=== PATIENT | female | born 1965 | race Caucasian/White ===

== ENCOUNTER 2022-08-18 18:00 | Emergency (ER) | payer MEDICAID, SELFPAY ==
--- NOTE | 2022-08-18 18:05 | EXP.UTC ---
Discharge Plan Disposition Patient Disposition: Home, Self-Care Condition: Good Prescriptions Prescriptions: New methylprednisolone 4 mg Tablets,Dose Pack 4 mg PO DIRECTED Qty: 21 0RF Aveeno Moisturizing 1 % cream 1 applic topical QID Qty: 206 0RF Referrals Follow up/Referrals: Renee Read APRN [Primary Care Provider] - See instructions Activity Restrictions/Add. Instructions Additional Instructions/Restrictions: Drink plenty of fluids. Use a good moisturizing lotion without fragrance, I prescribed one. Or, you could pick one over the counter. Take the medications as directed. Follow up with your regular doctor. GO TO THE ER FOR ANY WORSENING SYMPTOMS Clinical Impressions Clinical Impression: Chronic pruritus, Dry skin Instructions Patient Instructions: DI for Itching Discharge ED Provider: Justice Abraham [facility] General Time Seen by Provider: 08/18/22 19:11 History of Present Illness Provider Complaint: She states that she has been having itching of her legs, arms and body for the past several weeks. She has taken hydroxzine, topical steroids and Related Data Previous Rx's Medication Instructions Recorded colloidal oatmeal 1 % topical 1 applic topical QID #206 grams 08/18/22 cream (Aveeno Moisturizing) methylprednisolone 4 mg tablets in 4 mg PO DIRECTED #21 tabs 08/18/22 a dose pack Allergies Allergy/AdvReac Type Severity Reaction Status Date / Time cefaclor [From [facility]] Allergy Verified 08/18/22 19:10 Penicillins Allergy Verified 08/18/22 19:10 [facility] Social History (Updated 08/18/22 @ 19:11 by Ricardo Benson RN) Smoking Status: Current some day smoker alcohol intake: never current occupational status: other Travel in the last 8 weeks: None ROS Obtained: Yes All systems reviewed & no additional complaints except as documented Constitutional Constitutional: Denies chills and Denies fever(s) Eyes Eyes: Denies eye discharge ENT Ears, Nose, Mouth, and Throat: Denies dizziness, Denies otalgia and Denies sore throat Cardiovascular Cardiovascular: Denies chest pain Respiratory Respiratory: Denies shortness of breath, Denies chest congestion, Denies cough, Denies stridor and Denies wheezing Gastrointestinal Gastrointestingal: Denies nausea or vomiting Musculoskeletal Musculoskeletal: Reports system reviewed and no additional complaints, except as documented and Denies arthralgias Integumentary/Breasts Skin/Breast: Reports rash Neurologic Neurologic: Denies dizziness and Denies paresthesias Allergic/Immunologic Allergic/Immunologic: Denies wheezing Physical Exam General General appearance: alert and in no apparent distress Head Head exam: atraumatic, normocephalic and normal inspection Eye Eye exam: Present normal appearance, PERRL and EOMI ENT ENT exam: Present normal exam, normal oropharynx, mucous membranes moist, TM's normal bilaterally and normal external ear exam Neck Neck exam: Present normal inspection, full ROM and trachea midline; Absent meningismus or lymphadenopathy Chest Chest inspection: Present normal inspection and symmetric chest wall rise; Absent tenderness Respiratory Respiratory exam: Present normal lung sounds bilaterally; Absent respiratory distress Cardiovascular Cardiovascular exam: Present regular rate and normal rhythm; Absent JVD Abdominal Exam Abdominal exam: Present soft and normal bowel sounds; Absent distention, tenderness or guarding Extremities Exam Extremities exam: Present normal inspection, full ROM and normal capillary refill; Absent calf tenderness Back Exam Back exam: Present normal inspection; Absent tenderness Neurological Exam Neurological exam: Present alert and oriented X3 Psychiatric Psychiatric exam: Present normal affect and normal mood Skin Skin exam: Present other (there are small crusted lesions on her legs, arms and abdomen. no melissa ladd, no open wound. no redness. ) Lymphatic
[2022-08-18 19:05] VITALS: BP 135/79; PULSE 111; RESP 18; TEMP 36.8; O2SAT 98; BMI 29.5
[2022-08-18 19:48] VITALS: BP 135/79; PULSE 111; RESP 18; TEMP 36.8
== END 2022-08-18 19:49 | disposition home or self-care (01) ==
PROVIDERS: Emergency Provider Nurse Practitioner Family; PCP Nurse Practitioner Family
DX: L29.8 Other pruritus (principal); L85.3 Xerosis cutis
CPT/HCPCS: 99212; G0463

== ENCOUNTER → 2023-10-09 11:53 | Outpatient (CLI) | payer MEDICAID, SELFPAY | PROVIDERS: PCP Internal Medicine Adolescent Medicine; Visit Provider Nurse Practitioner | DX: R06.00 Dyspnea, unspecified (principal); R07.9 Chest pain, unspecified; R00.0 Tachycardia, unspecified; E11.9 Type 2 diabetes mellitus without complications; I73.9 Peripheral vascular disease, unspecified; K27.5 Chronic or unspecified peptic ulcer, site unspecified, with perforation; R60.9 Edema, unspecified; Z72.0 Tobacco use; Z93.3 Colostomy status; Z79.84 Long term (current) use of oral hypoglycemic drugs | CPT/HCPCS: 93270 ==

== ENCOUNTER → 2023-10-09 13:45 | Outpatient (CLI) | payer MEDICAID, SELFPAY ==
--- NOTE | 2023-10-09 13:51 | CT_ITS ---
PROCEDURE INFORMATION: Exam: CTA Chest With Contrast Exam date and time: 10/09/2023 4:02 PM Age: 58 years old Clinical indication: Dyspnea; Additional info: Chest pain, dyspnea, edema TECHNIQUE: Imaging protocol: Computed tomographic angiography of the chest with contrast. Exam focused on the arteries. 3D rendering (Not supervised by radiologist): MIP and/or 3D reconstructed images were created by the technologist. Radiation optimization: All CT scans at this facility use at least one of these dose optimization techniques: automated exposure control; mA and/or kV adjustment per patient size (includes targeted exams where dose is matched to clinical indication); or iterative reconstruction. Contrast material: ISOVUE; Contrast volume: 70 ml; Contrast route: INTRAVENOUS (IV); REPORTING DATA: Count of CT and Cardiac NM exams in prior 12 months: This patient has received 0 known CTs and 0 known cardiac nuclear medicine studies in the 12 months prior to the current study. COMPARISON: No relevant prior studies available. FINDINGS: Pulmonary arteries: Poor contrast the main pulmonary artery. Hounsfield units in the 210. Aorta: Unremarkable. No aortic aneurysm. No aortic dissection. Lungs: Hazy lungs bilaterally possibly a pneumonitis with atelectatic changes in both bases. Pleural spaces: Unremarkable. No pneumothorax. No pleural effusion. Heart: Unremarkable. No cardiomegaly. No pericardial effusion. Lymph nodes: 13 x 13 mm enlarged pretracheal lymph node. 17 x 14 mm enlarged right hilar lymph node. 16 x 13 mm enlarged left hilar lymph node. Stomach and bowel: Incompletely seen colostomy. Bones/joints: Fixation in the spine. Soft tissues: Unremarkable. IMPRESSION: 1. Adenopathy. 2. Poor evaluation for PE. No large PE although peripheral vessels are not well seen. 3. Lung infiltrates.
[2023-10-09 14:55] LABS: Blood Urea Nitrogen 28 mg/dl (7-17); Estimated Glomerular Filt Rate 38 ml/min (>60); GFR (African American) 47 ML/MIN (>60)
== END ==
PROVIDERS: PCP Internal Medicine Adolescent Medicine; Visit Provider Nurse Practitioner
DX: R06.00 Dyspnea, unspecified (principal); R07.9 Chest pain, unspecified; R00.0 Tachycardia, unspecified; I73.9 Peripheral vascular disease, unspecified; R60.9 Edema, unspecified; E11.9 Type 2 diabetes mellitus without complications; K27.5 Chronic or unspecified peptic ulcer, site unspecified, with perforation; Z72.0 Tobacco use; Z93.3 Colostomy status; Z79.84 Long term (current) use of oral hypoglycemic drugs
CPT/HCPCS: 36415; 71275; 82565; 84520; Q9967